=== PATIENT | male | born 1995 | race African-American/Black ===

== ENCOUNTER 2020-11-29 03:07 | Emergency (ER) | payer MEDICAID ==
[~2020-11-29] VITALS: Ht 170.2 cm; Wt 72.0 kg
[2020-11-29 03:09] VITALS: BP 139/94
== END 2020-11-29 05:30 | disposition home or self-care (01) ==
LOC: ER 03:18
DX: A63.0 Anogenital (venereal) warts (principal)
CPT/HCPCS: 99283